=== PATIENT | female | born 1990 | race Caucasian/White ===

== ENCOUNTER 2024-01-19 14:08 | Emergency (ER) | payer MEDICAID ==
[~2024-01-19] VITALS: Ht 180.3 cm; Wt 94.5 kg
[2024-01-19 14:09] VITALS: BP 168/135; PULSE 66; RESP 16; TEMP 98; O2SAT 98
== END 2024-01-19 15:20 | disposition home or self-care (01) ==
LOC: ER 14:09
DX: M25.551 Pain in right hip (principal)
CPT/HCPCS: 73502; 99284

== ENCOUNTER 2024-09-28 00:20 | Emergency (ER) | payer MEDICAID ==
[~2024-09-28] VITALS: Ht 167.6 cm; Wt 88.4 kg
[2024-09-28 00:52] LABS: URINE HCG POSITIVE (NEG)
[2024-09-28 01:01] LABS: BILIRUBIN,URINE NEGATIVE (Neg); CLARITY,URINE SLIGHTLY CLOUDY (Clear); COLOR,URINE YELLOW (Yellow); GLUCOSE, URINE NEGATIVE (Neg); KETONES,URINE TRACE mg/dl (Neg); LEUKOCYTE ESTERASE ,URINE NEGATIVE (Neg); NITRITES, URINE NEGATIVE (Neg); OCCULT BLOOD,URINE NEGATIVE (Neg); PROTEIN,URINE NEGATIVE (Neg); UROBILINOGEN,URINE 0.2 E.U/dL (0.2-1.0)
[2024-09-28 01:05] LABS: BASOPHILS % (AUTO) 0.3 % (0-1); EOSINOPHILS # (AUTO) 0.2 X10'3 (0-0.9); EOSINOPHILS % (AUTO) 1.7 % (0-6); HEMATOCRIT 39.5 % (35.0-45.0); HEMOGLOBIN 13.2 g/dl (12.0-16.0); LYMPHOCYTES # (AUTO) 2.6 X10'3 (1.1-4.8); LYMPHOCYTES % (AUTO) 22.6 % (21-51); MEAN CORPUSCULAR HEMOGLOBIN 26.7 PG (27.0-31.0); MEAN CORPUSCULAR HGB CONC 33.4 g/dL (33.0-36.5); MEAN CORPUSCULAR VOLUME 79.9 FL (78-98); MONOCYTES # (AUTO) 0.6 X10'3 (0-0.9); MONOCYTES % (AUTO) 5.1 % (2-12); NEUTROPHILS % (AUTO) 70.3 % (42-75); PLATELET COUNT 248 X10'3 (140-440); RED BLOOD COUNT 4.95 X10'6 (4.20-5.60); RED CELL DISTRIBUTION WIDTH 12.7 % (11.5-14.5); WHITE BLOOD COUNT 11.4 X10'3 (4.5-11.0)
[2024-09-28 01:06] LABS: UA COLLECTION TYPE CLN CATCH MIDSTREAM
[2024-09-28 01:07] LABS: BACTERIA,URINE 3+ /HPF (Neg); MUCUS STRANDS FEW /LPF (Neg); RBC,URINE NONE SEEN /HPF (0-2); SQUAMOUS EPITHELIAL CELL,UR MODERATE /LPF (FEW); WBC,URINE 0-4 /HPF (0-4)
[2024-09-28 01:26] LABS: ALANINE AMINOTRANSFERASE 16 U/L (12-78); ALBUMIN 3.7 G/DL (3.4-5.0); ALKALINE PHOSPHATASE 59 IU/L (46-116); ANION GAP 10 (8-16); ASPARTATE AMINO TRANSFERASE 12 U/L (10-37); BILIRUBIN,TOTAL 0.3 MG/DL (0.1-1.0); BLOOD UREA NITROGEN 12 MG/DL (7-18); BUN/CREATININE RATIO 17.1 (10.0-20.0); CALCIUM 8.6 MG/DL (8.5-10.1); CHLORIDE 102 MMOL/L (99-107); GLUCOSE 174 MG/DL (70-104); POTASSIUM 3.9 MMOL/L (3.5-5.1); SODIUM 137 MMOL/L (135-145); TOTAL CARBON DIOXIDE 24.6 MMOL/L (24-32); TOTAL PROTEIN 7.5 G/DL (6.4-8.2); eCRCL 107 ML/MIN; eGFR > 90 ML/MIN
[2024-09-28 01:47] LABS: LIPASE 70 U/L (16-77)
[2024-09-28 02:00] LABS: BETA HCG,QUANTITATIVE 7296 mIU/ml
[2024-09-28 04:06] VITALS: BP 128/86; PULSE 89; RESP 14; TEMP 99.4; O2SAT 99
== END 2024-09-28 04:08 | disposition home or self-care (01) ==
LOC: ER 00:21
DX: O41.8X10 Other specified disorders of amniotic fluid and membranes, first trimester, not applicable or unspecified (principal); Z3A.01 Less than 8 weeks gestation of pregnancy
CPT/HCPCS: 36415; 76801; 76817; 80053; 81001; 81025; 83690; 84145; 84702; 85025; 99284